=== PATIENT | female | born 1955 | race Caucasian/White ===

== ENCOUNTER → 2016-08-30 | Outpatient (CLI) | payer OTHER ==
[~2016-08-30] MED LIST: CALCIUM 600 + D1 TA1 PO; CLEARLAX17 GM PO; IBUPROFEN400 MG PO; MULTIPLE VITAMI1 T12 PO; PEPCID COMPLET1 EACH PO; ZYRTEC10 M2 PO
--- NOTE | ~2016-08-30 | EKG ---
PATIENT: MADISON GLEZ UNIT #: [id number] Ventricular Rate: 74 BPM Atrial Rate: 74 BPM P-R Interval: 146 ms QRS Duration: 82 ms Q-T Interval: 366 ms QTC Calculation(Bezet): 406 ms P Hardin: 38 degrees Calculated R Hardin: -10 degrees Calculated T Hardin: -2 degrees Diagnosis Line: Normal sinus rhythm Diagnosis Line: Normal ECG Diagnosis Line: When compared with ECG of 19-APR-2016 02:46, Diagnosis Line: No significant change was found Diagnosis Line: Confirmed by YOGI WILCOX MD ([id number]) on 08/31/2016 Diagnosis Line: 7:11:39 PM INTERPRETING MD: JERI LANE
[2016-08-30 10:42] LABS: HEMATOCRIT 39.9 % (35.0-45.0); HEMOGLOBIN 12.9 gm/dL (12.0-16.0); MEAN CELL VOLUME 86.6 FL (83-96); MEAN CORPUSCULAR HEMOGLOBIN 27.9 PG (28-34); MEAN CORPUSCULAR HGB CONC 32.2 g/dL (30-36); MEAN PLATELET VOLUME 7.4 FL (6.5-11.5); RED BLOOD COUNT 4.61 X10e (3.90-5.30); RED CELL DISTRIBUTION WIDTH 14.4 % (11.0-15.5); WHITE BLOOD COUNT 8.8 X10e3 (4.0-10.5)
[2016-08-30 11:24] LABS: BUN/CREATININE RATIO 38.33; CREATININE SERUM 0.6 mg/dL (0.6-1.4); GLOM FILT RATE Estimated 97.7 mL/min (>60); POTASSIUM 4.3 mmol/L (3.5-5.1)
== END | disposition home or self-care (01) ==
LOC: CLAB 09:56
PROVIDERS: Urology
DX: N20.0 Calculus of kidney (principal)
CPT/HCPCS: 36415; 80048; 85027; 93005